=== PATIENT | female | born 1935 | race Caucasian/White ===

== ENCOUNTER 2018-04-11 23:22 | Emergency (ER) | payer MEDICARE, OTHER, MEDICAID ==
[2018-04-11] MEDS ORDERED: EPINEPHrine Nasal Soln 30 MG/30 ML Bottle NASBOTH ONE (23:23)
[2018-04-11] MEDS ORDERED: Ondansetron 4 MG Tab.DIS PO ONE (23:23)
[2018-04-11 23:29] VITALS: BP 122/49
[2018-04-11] MEDS ORDERED: EPINEPHrine Nasal Soln 30 MG/30 ML Bottle NAS PRN (23:49)
--- NOTE | 2018-04-11 23:52 | EDM.PDOC ---
ED HPI GENERAL MEDICAL PROBLEM - General Chief Complaint: ENT Problem Stated Complaint: nosebleed Time Seen by Provider: 04/11/18 23:32 Source of Information: Reports: Patient, Family History Limitations: Reports: No Limitations - History of Present Illness INITIAL COMMENTS - FREE TEXT/NARRATIVE: patient presents to ER with a nose bleed. States first started at 0300 but the staff at [facility] was able to get it to stop. Bled again shortly this am. This evening, bleeding was heavier and patient states she spit up a "big clot". Feels nauseated and weak from all of this today. She currently has packing in and has no active bleeding. Per family, patient has a history of profuse nose bleeds that have required cautery in the past. Does believe her room at the long-term is quite dry. Does not use any nose moisturizers. No humidifier in her room there. Currently takes an aspirin daily. Onset: Today Duration: Waxing/Waning Location: Reports: Face Associated Symptoms: Reports: Nausea/Vomiting Treatments RN PERIOPERATIVE: Reports: Dressing(s) - Related Data Allergies Allergy/AdvReac Type Severity Reaction Status Date / Time diazepam [From Valium] Allergy Rash Verified 04/11/18 23:29 Penicillins Allergy Cannot Verified 04/11/18 23:29 Remember procaine HCl [From Novocain] Allergy Chills Verified 04/11/18 23:29 Sulfa (Sulfonamide Allergy Burning Verified 04/11/18 23:29 Antibiotics) Home Meds: Home Meds Aspirin [Ecotrin] 81 mg PO DAILY 09/28/13 [History] Losartan [Cozaar] 50 mg PO DAILY 09/28/13 [History] Lovastatin 80 mg PO BEDTIME 09/28/13 [History] Magnesium 250 mg PO DAILY 09/28/13 [History] Nitroglycerin [Nitrostat] 0.4 mg SL ASDIRECTED PRN 09/28/13 [History] Sertraline [Zoloft] 50 mg PO DAILY 09/28/13 [History] Vitamin B Complex [B Complex] 1 each PO DAILY 09/28/13 [History] Levothyroxine [Synthroid] 150 mcg PO DAILY 07/23/14 [History] Acetaminophen [Acetaminophen Extra Strength] 1,000 mg PO Q4H PRN 12/22/14 [ History] traMADol [Ultram] 50 mg PO Q4H PRN 12/22/14 [History] Insulin Glarg,Human.Rec.Analog [Lantus] 30 unit SUBCUT BEDTIME 05/02/15 [History ] Magnesium Hydroxide [Milk of Magnesia] 30 ml PO DAILY PRN 05/02/15 [History] Cholecalciferol (Vitamin D3) [Vitamin D3] 2,000 unit PO DAILY 10/28/15 [History] Dextran 70/Hypromellose [Artificial Tears] 1 each OP BID 10/28/15 [History] Bisacodyl 10 mg RC DAILY PRN 12/19/15 [History] Bisacodyl [Dulcolax] 5 mg PO DAILY PRN 12/19/15 [History] Ferrous Sulfate 325 mg PO BID 12/19/15 [History] Furosemide [Lasix] 40 mg PO DAILY 12/19/15 [History] Gabapentin [Neurontin] 100 mg PO TID 12/19/15 [History] Insulin Aspart [NovoLOG] 6 unit SUBCUT WITHBREAKFAST 12/19/15 [History] Insulin Aspart [NovoLOG] 8 unit SUBCUT WITHLUNCH 12/19/15 [History] Insulin Aspart [NovoLOG] 10 unit SUBCUT WITHDINNER 12/19/15 [History] Sennosides/Docusate Sodium [Senna-Docusate Sodium] 1 each PO DAILY 12/19/15 [ History] Sucralfate [Carafate] 1 gm PO TID 12/19/15 [History] Temazepam [Restoril] 15 mg PO BEDTIME 12/19/15 [History] Metoprolol Tartrate [Lopressor] 25 mg PO Q12HR 03/25/16 [History] Pantoprazole [ProTONIX] 40 mg PO ACBREAKFAST 03/25/16 [History] Acetaminophen [Tylenol] 650 mg PO Q4H PRN #0 tablet 03/28/16 [Rx] Levofloxacin [Levaquin] 500 mg PO Q24H #1 tablet 03/28/16 [Rx] Past Medical History Cardiovascular History: Reports: Bypass, Stents Gastrointestinal History: Reports: GI Bleed Genitourinary History: Reports: UTI, Recurrent ELECTRICAL INTEGRATOR History: Reports: Other (See Below) Other ELECTRICAL INTEGRATOR History: twisted ovarian cyst Other Musculoskeletal History: compression fx to lumbar, right arm Neurological History: Reports: Concussion 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 Other Endocrine/Metabolic History: growth on thyroid Hematologic History: Reports: Anemia, Blood Transfusion(s) Oncologic (Cancer) History: 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 Dermatologic History: Reports: Cellulitis - Infectious Disease History Infectious Disease History: Reports: MRSA - Past Surgical History HEENT Surgical History: Reports: Cataract Surgery Cardiovascular Surgical History: Reports: Pacer, Valve Replacement Neurological Surgical History: Reports: None Social & Family History - Family History Family Medical History: Noncontributory - Tobacco Use Smoking Status *Q: Never Smoker - Caffeine Use Caffeine Use: Reports: None - Recreational Drug Use Recreational Drug Use: No - Living Situation & Occupation Living situation: Reports: Occupation: Retired ED ROS ENT - Review of Systems Review Of Systems: See Below Constitutional: Reports: Weakness. Denies: Fever, Chills, Malaise, Decreased Appetite HEENT: Reports: Nosebleed. Denies: Ear Pain, Rhinitis, Sinus Problem Respiratory: Denies: Shortness of Breath, Cough Cardiovascular: Denies: Chest Pain Endocrine: Reports: Fatigue GI/Abdominal: Reports: Nausea. Denies: Abdominal Pain, Vomiting : Reports: No Symptoms Musculoskeletal: Reports: No Symptoms Skin: Reports: No Symptoms Neurological: Reports: No Symptoms ED EXAM, ENT - Physical Exam Exam: See Below Exam Limited By: No Limitations General Appearance: Alert, WD/WN, No Apparent Distress Ears: Normal External Exam, Normal TMs Nose: Normal Inspection, Dried Blood, Other (packing removed from left nare. No active bleeding noted. Inserted gel foam moistened with adrenalin to left nare. Patient tolerated well. ) Mouth/Throat: Normal Inspection, Normal Oropharynx Head: Normocephalic Neck: Normal Inspection, Supple, Non-Tender Respiratory/Chest: No Respiratory Distress, Lungs Clear, Normal Breath Sounds Cardiovascular: Regular Rate, Rhythm Course - Vital Signs Last Recorded V/S: Last Vital Signs Temp 96.8 F 04/11/18 23:22 Pulse 65 04/11/18 23:22 Resp 20 04/11/18 23:22 BP 122/49 L 04/11/18 23:22 Pulse Ox 98 04/11/18 23:22 - Orders/Labs/Meds Orders: Active Orders 24 hr Category Date Time Status BASIC METABOLIC PANEL,BMP [CHEM] Stat Lab 04/11/18 23:35 Ordered EPINEPHrine [Adrenalin Nasal Soln] Med 04/11/18 23:49 Ordered 0.5 mg SEAN Q3HR PRN Medication Orders Epinephrine HCl (Adrenalin Nasal Soln) 0.5 mg SEAN Q3HR PRN PRN Reason: Bleeding Labs: Laboratory Tests 04/11/18 Range/Units 23:45 WBC 11.7 H (5.0-10.0) 10^3/uL RBC 4.22 (4.00-5.50) 10^6/uL Hgb 13.0 (12.0-16.0) g/dL Hct 40.9 (37.0-47.0) % MCV 96.9 H (82.0-94.0) fL MCH 30.8 (27.0-32.0) pg MCHC 31.8 L (33.0-38.0) g/dL RDW Coeff of Johnathan 15.1 H (11.0-15.0) % Plt Count 173 (150-400) 10^3/uL Neut % (Auto) 45.1 (35-85) % Lymph % (Auto) 34.1 (10-55) % [place] % (Auto) 9.5 (0-16) % Eos % (Auto) 10.8 H (0-5) % Baso % (Auto) 0.5 (0-3) % Neut # (Auto) 5.29 (1.80-7.00) 10^3/uL Lymph # (Auto) 4.00 (1.00-4.80) 10^3/uL [place] # (Auto) 1.11 H (0.00-0.80) 10^3/uL Eos # (Auto) 1.26 H (0.00-0.45) 10^3/uL Baso # (Auto) 0.06 10^3/uL Meds: Medications Generic Name Dose Route Start Last Admin Trade Name Freq PRN Reason Stop Dose Admin Epinephrine HCl 0.5 mg 04/11/18 23:49 Adrenalin Nasal Soln SEAN Q3HR PRN Bleeding - Re-Assessments/Exams Free Text/Narrative Re-Assessment/Exam: 04/11/18 23:53 No further nose bleed since admission to ER 04/12/18 00:01 No further bleeding noted. Posterior pharynx is clear. Departure - Departure Time of Disposition: 00:01 Disposition: Home, Self-Care 01 Condition: Good Clinical Impression: Epistaxis - Discharge Information *PRESCRIPTION DRUG MONITORING PROGRAM REVIEWED*: No *COPY OF PRESCRIPTION DRUG MONITORING REPORT IN PATIENT MUKESH: No Forms: ED Department Discharge Additional Instructions: 1. Hold aspirin today 2. Zofran 4 mg as needed for nausea 3. Remove packing this afternoon 4. Once packing removed, start [place] saline nasal spray in the morning and afternoon, saline gel to nares at bedtime 5. Humidifier in room if able 6. Follow up if any ongoing concerns. - My Orders Last 24 Hours: My Active Orders 04/11/18 23:35 BASIC METABOLIC PANEL,BMP [CHEM] Stat 04/11/18 23:49 EPINEPHrine [Adrenalin Nasal Soln] 0.5 mg SEAN Q3HR PRN - Assessment/Plan Last 24 Hours: My Active Orders 04/11/18 23:35 BASIC METABOLIC PANEL,BMP [CHEM] Stat 04/11/18 23:49 EPINEPHrine [Adrenalin Nasal Soln] 0.5 mg SEAN Q3HR PRN
[2018-04-11] MEDS ORDERED: Take Home: Ondansetron 4 MG Tab.DIS, 2 Tab Pack PO ONE (23:57)
== END 2018-04-12 | disposition home or self-care (01) ==
LOC: CC.ED 23:22
DX: R04.0 Epistaxis (principal); E20.9 Hypoparathyroidism, unspecified; D64.9 Anemia, unspecified; Z88.0 Allergy status to penicillin; Z79.82 Long term (current) use of aspirin; Z79.4 Long term (current) use of insulin; Z79.899 Other long term (current) drug therapy; Z88.8 Allergy status to other drugs, medicaments and biological substances; Z88.2 Allergy status to sulfonamides
CPT/HCPCS: 36415; 80048; 85025; 99283; A9270-GY

== ENCOUNTER 2018-04-15 11:35 | Observation (INO) | payer MEDICARE, OTHER, MEDICAID ==
[2018-04-15 12:18] LABS: CHLORIDE,CL 99 mEq/L (98-106); SODIUM,NA 137 mEq/L (136-145)
--- NOTE | 2018-04-15 13:13 | EDM.PDOC ---
ED HPI GENERAL MEDICAL PROBLEM - General Chief Complaint: General Stated Complaint: WEAKNESS,LETHARGIC Time Seen by Provider: 04/15/18 11:40 Source of Information: Reports: Patient, Residential Records History Limitations: Reports: Altered Mental Status - History of Present Illness INITIAL COMMENTS - FREE TEXT/NARRATIVE: Pt was sent to clinic from the [facility] with a 36 hour history of increasing weakness and some confusion. Has needed increase in assistance to transfer. Noted when she came to the clinic she had right sided weakness and was leaning to the right side. Speech was slightly slurred but answered questions appropriately. She was sent to the ER for stroke protocol at that time. When arriving here initial stroke eval done. see the attached sheet. She did score a 3 initially as her right side was weaker and had mild aphasia as she couldn't remember what the cactus in the picture was called but could name everything else. CT of the head was read by radiology as negative for any bleed. Onset: Gradual Duration: Hour(s): (at least 36 hours as reported from [facility] notes.) Location: Reports: Upper Extremity, Right (weakness), Lower Extremity, Right ( weakness) Severity: Mild Associated Symptoms: Reports: Weakness - Related Data Allergies Allergy/AdvReac Type Severity Reaction Status Date / Time diazepam [From Valium] Allergy Rash Verified 04/15/18 12:03 Penicillins Allergy Cannot Verified 04/15/18 12:03 Remember procaine HCl [From Novocain] Allergy Chills Verified 04/15/18 12:03 Sulfa (Sulfonamide Allergy Burning Verified 04/15/18 12:03 Antibiotics) Home Meds: Home Meds Aspirin [Ecotrin] 81 mg PO DAILY 09/28/13 [History] Losartan [Cozaar] 25 mg PO DAILY 09/28/13 [History] Lovastatin 80 mg PO BEDTIME 09/28/13 [History] Magnesium 250 mg PO DAILY 09/28/13 [History] Sertraline [Zoloft] 100 mg PO DAILY 09/28/13 [History] Vitamin B Complex [B Complex] 1 each PO DAILY 09/28/13 [History] Levothyroxine [Synthroid] 150 mcg PO DAILY 07/23/14 [History] traMADol [Ultram] 50 mg PO QID 12/22/14 [History] Cholecalciferol (Vitamin D3) [Vitamin D3] 2,000 unit PO DAILY 10/28/15 [History] Dextran 70/Hypromellose [Artificial Tears] 1 each OP BID 10/28/15 [History] Furosemide [Lasix] 60 mg PO DAILY 12/19/15 [History] Gabapentin [Neurontin] 200 mg PO TID 12/19/15 [History] Insulin Aspart [NovoLOG] 30 unit SUBCUT WITHBREAKFAST 12/19/15 [History] Insulin Aspart [NovoLOG] 30 unit SUBCUT WITHLUNCH 12/19/15 [History] Insulin Aspart [NovoLOG] 35 unit SUBCUT WITHDINNER 12/19/15 [History] Sennosides/Docusate Sodium [Senna-Docusate Sodium] 1 each PO DAILY 12/19/15 [ History] Sucralfate [Carafate] 1 gm PO BID 12/19/15 [History] Metoprolol Tartrate [Lopressor] 25 mg PO Q12HR 03/25/16 [History] Acetaminophen [Tylenol] 650 mg PO Q4H PRN #0 tablet 03/28/16 [Rx] Aloe Vera/Sodium Chloride [[place] Saline Nasal Gel] 1 applic SEAN TID 04/15/18 [ History] Insulin Detemir [Levemir] 70 unit SUBCUT BID 04/15/18 [History] Isosorbide Mononitrate [Imdur] 30 mg PO DAILY 04/15/18 [History] Loratadine [Claritin] 10 mg PO DAILY 04/15/18 [History] hydrOXYzine pamoate [Hydroxyzine Pamoate] 25 mg PO Q6H PRN 04/15/18 [History] Past Medical History Cardiovascular History: Reports: Bypass, Stents Gastrointestinal History: Reports: GI Bleed Genitourinary History: Reports: UTI, Recurrent RADAR MECHANIC History: Reports: Other (See Below) Other RADAR MECHANIC History: twisted ovarian cyst Other Musculoskeletal History: compression fx to lumbar, right arm Neurological History: Reports: Concussion 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 Other Endocrine/Metabolic History: growth on thyroid Hematologic History: Reports: Anemia, Blood Transfusion(s) Oncologic (Cancer) History: 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 Dermatologic History: Reports: Cellulitis - Infectious Disease History Infectious Disease History: Reports: MRSA - Past Surgical History HEENT Surgical History: Reports: Cataract Surgery Cardiovascular Surgical History: Reports: Pacer, Valve Replacement Neurological Surgical History: Reports: None Social & Family History - Family History Family Medical History: Noncontributory - Tobacco Use Smoking Status *Q: Never Smoker - Living Situation & Occupation Living situation: Reports: Occupation: Retired ED ROS GENERAL - Review of Systems Review Of Systems: See Below Constitutional: Reports: Weakness. Denies: Fever, Chills HEENT: Reports: No Symptoms. Denies: Nosebleed Respiratory: Denies: Shortness of Breath, Cough Cardiovascular: Denies: Chest Pain, Edema GI/Abdominal: Denies: Abdominal Pain, Constipation, Diarrhea, Nausea, Vomiting : Reports: No Symptoms Musculoskeletal: Denies: Arm Pain, Leg Pain Skin: Reports: Erythema (lower legs bilaterally which she states is normal for her. ) Neurological: Reports: Difficulty Walking, Weakness, Change in Speech. 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 No: Facial Swelling, Facial Tenderness Neck: Normal Inspection, Supple, Non-Tender Respiratory/Chest: No Respiratory Distress, Lungs Clear, Normal Breath Sounds Cardiovascular: Regular Rate, Rhythm, No Edema Peripheral Pulses: 3+: Carotid (L), Carotid (R) GI/Abdominal: Normal Bowel Sounds, Soft, Non-Tender (Female) Exam: Other (external genitalia is red with white discharge noted. ) Extremities: Normal Inspection, No Pedal Edema, Normal Capillary Refill, Other ( see neuro assessment sheet. She does have weakness of the right upper and lower leg. More noted on the lower extremity.) Neurological: Alert, Oriented, Slow to Respond Psychiatric: Flat Affect Skin Exam: Warm, Dry, Erythema (to lower anterior legs but not warm to touch. No open areas. No tenderness noted.) Course - Orders/Labs/Meds Orders: Active Orders 24 hr Category Date Time Status Head wo Cont [CT] Stat Exams 04/15/18 11:44 Taken EKG 12 Lead [EK] Routine Ther 04/15/18 11:44 Ordered Labs: Laboratory Tests 04/15/18 04/15/18 04/15/18 Range/Units 12:00 12:00 12:00 WBC 10.4 H (5.0-10.0) 10^3/uL RBC 4.00 (4.00-5.50) 10^6/uL Hgb 12.3 (12.0-16.0) g/dL Hct 38.5 (37.0-47.0) % MCV 96.3 H (82.0-94.0) fL MCH 30.8 (27.0-32.0) pg MCHC 31.9 L (33.0-38.0) g/dL RDW Coeff of Johnathan 14.9 (11.0-15.0) % Plt Count 175 (150-400) 10^3/uL Neut % (Auto) 61.5 (35-85) % Lymph % (Auto) 21.2 (10-55) % [place] % (Auto) 8.8 (0-16) % Eos % (Auto) 8.0 H (0-5) % Baso % (Auto) 0.5 (0-3) % Neut # (Auto) 6.37 (1.80-7.00) 10^3/uL Lymph # (Auto) 2.20 (1.00-4.80) 10^3/uL [place] # (Auto) 0.91 H (0.00-0.80) 10^3/uL Eos # (Auto) 0.83 H (0.00-0.45) 10^3/uL Baso # (Auto) 0.05 10^3/uL PT 12.0 (9.7-12.3) SEC INR 1.17 (0.92-1.18) APTT 31.7 (23.2-32.3) SEC Sodium 137 (136-145) mEq/L Potassium 4.5 (3.5-5.0) mEq/L Chloride 99 (98-106) mEq/L Carbon Dioxide 34 H (21-32) mmol/L BUN 41 H D (7-18) mg/dL Creatinine 1.9 H (0.6-1.0) mg/dL Est Cr Clr Drug Dosing TNP Estimated GFR (MDRD) 25 L (>=60) mL/min Glucose 208 H D (75-99) mg/dL Calcium 9.0 (8.4-10.1) mg/dL Total Bilirubin 0.6 (0.0-1.0) mg/dL AST 73 H (15-37) U/L ALT 36 (12-78) U/L Alkaline Phosphatase 133 H (46-116) U/L Creatine Kinase 855 H (21-215) U/L Troponin I < 0.017 (0.00-0.06) ng/mL Total Protein 7.2 (6.4-8.2) g/dL Albumin 3.0 L (3.4-5.0) g/dL Urine Color (YELLOW) Urine Appearance (CLEAR) Urine pH (4.5-8.0) Ur Specific [place] (1.003-1.020) Urine Protein (NEGATIVE) mg/dL Urine Glucose (UA) (NEGATIVE) mg/dL Urine Ketones (NEGATIVE) mg/dL Urine Occult Blood (NEGATIVE) Urine Nitrite (NEGATIVE) Urine Bilirubin (NEGATIVE) Urine Urobilinogen (0.2-1.0) EU/dL Ur Leukocyte Esterase (NEGATIVE) Urine RBC (0-5) /HPF Urine WBC (0-5) /HPF Hyaline Casts (NOT SEEN) /LPF 04/15/18 Range/Units 12:37 WBC (5.0-10.0) 10^3/uL RBC (4.00-5.50) 10^6/uL Hgb (12.0-16.0) g/dL Hct (37.0-47.0) % MCV (82.0-94.0) fL MCH (27.0-32.0) pg MCHC (33.0-38.0) g/dL RDW Coeff of Johnathan (11.0-15.0) % Plt Count (150-400) 10^3/uL Neut % (Auto) (35-85) % Lymph % (Auto) (10-55) % [place] % (Auto) (0-16) % Eos % (Auto) (0-5) % Baso % (Auto) (0-3) % Neut # (Auto) (1.80-7.00) 10^3/uL Lymph # (Auto) (1.00-4.80) 10^3/uL [place] # (Auto) (0.00-0.80) 10^3/uL Eos # (Auto) (0.00-0.45) 10^3/uL Baso # (Auto) 10^3/uL PT (9.7-12.3) SEC INR (0.92-1.18) APTT (23.2-32.3) SEC Sodium (136-145) mEq/L Potassium (3.5-5.0) mEq/L Chloride (98-106) mEq/L Carbon Dioxide (21-32) mmol/L BUN (7-18) mg/dL Creatinine (0.6-1.0) mg/dL Est Cr Clr Drug Dosing Estimated GFR (MDRD) (>=60) mL/min Glucose (75-99) mg/dL Calcium (8.4-10.1) mg/dL Total Bilirubin (0.0-1.0) mg/dL AST (15-37) U/L ALT (12-78) U/L Alkaline Phosphatase (46-116) U/L Creatine Kinase (21-215) U/L Troponin I (0.00-0.06) ng/mL Total Protein (6.4-8.2) g/dL Albumin (3.4-5.0) g/dL Urine Color Yellow (YELLOW) Urine Appearance Clear (CLEAR) Urine pH 5.5 (4.5-8.0) Ur Specific [place] 1.020 (1.003-1.020) Urine Protein Negative (NEGATIVE) mg/dL Urine Glucose (UA) Negative (NEGATIVE) mg/dL Urine Ketones Negative (NEGATIVE) mg/dL Urine Occult Blood Negative (NEGATIVE) Urine Nitrite Negative (NEGATIVE) Urine Bilirubin Negative (NEGATIVE) Urine Urobilinogen 0.2 (0.2-1.0) EU/dL Ur Leukocyte Esterase Negative (NEGATIVE) Urine RBC Not seen (0-5) /HPF Urine WBC Not seen (0-5) /HPF Hyaline Casts Few H (NOT SEEN) /LPF - Re-Assessments/Exams Free Text/Narrative Re-Assessment/Exam: 04/15/18 13:[address] Miller. He agrees that she will be admitted observation for IV fluids and neuro checks. Will repeat the labs in the morning to watch renal functions. MRI will be scheduled for Wednesday if family wishes. Discussed with Cornelia Sharma who will cover for the weekend. Departure - Departure Time of Disposition: 13:22 Disposition: Refer to Observation Condition: Fair Clinical Impression: TIA (transient ischemic attack), Acute renal insufficiency, Weakness - Discharge Information *PRESCRIPTION DRUG MONITORING PROGRAM REVIEWED*: Not Applicable *COPY OF PRESCRIPTION DRUG MONITORING REPORT IN PATIENT MUKESH: Not Applicable Additional Instructions: Will be admitted to Dr Miller observation with neuro checks and IV fluids. - Problem List & Annotations (1) TIA (transient ischemic attack) SNOMED Code(s): 675407885 Code(s): G45.9 - TRANSIENT CEREBRAL ISCHEMIC ATTACK, UNSPECIFIED Status: Acute Priority: High (2) Acute renal insufficiency SNOMED Code(s): 579356642 Code(s): N28.9 - DISORDER OF KIDNEY AND URETER, UNSPECIFIED Status: Acute Priority: High (3) Weakness SNOMED Code(s): 61895458 Code(s): R53.1 - WEAKNESS Status: Acute Priority: Low - Problem List Review Problem List Initiated/Reviewed/Updated: Yes - My Orders Last 24 Hours: My Active Orders 04/15/18 11:44 Head wo Cont [CT] Stat EKG 12 Lead [EK] Routine - Assessment/Plan Admission H&P: Please use this note as an admission H&P Last 24 Hours: My Active Orders 04/15/18 11:44 Head wo Cont [CT] Stat EKG 12 Lead [EK] Routine
[2018-04-15] MEDS ORDERED: Metoprolol Tartrate 25 MG Tab PO SCH (13:45)
[2018-04-15] MEDS ORDERED: Fluconazole 100 MG Tab PO ONE (14:23)
[2018-04-15] MEDS: Enoxaparin 30 MG/0.3 ML Syringe SUBCUT SCH (14:56)
[2018-04-15] MEDS: Sodium Chloride 0.9% 1,000 ML IV SCH (14:56)
[2018-04-15] MEDS: Non-Formulary Medication 1 Each (Aloe Vera/Sodium Chloride [Ayr Saline Nasal Gel] 1 APPLIC NAS SCH ×2 (14:58→19:42)
[2018-04-15] MEDS: **PTOM** Gabapentin 100 MG Cap PO SCH ×2 (15:26→19:33)
[2018-04-15] MEDS ORDERED: Insulin Aspart 100 Units/ML 3 ML Pen SUBCUT SCH (17:30)
[2018-04-15] MEDS ORDERED: Oxymetazoline 0.05% Nasal Spray 15 ML Bottle NAS PRN (17:55)
[2018-04-15] MEDS: SUCRALFATE 1 GM PO SCH (19:33)
[2018-04-15] MEDS: SERTRALINE 100 MG PO SCH (19:34)
[2018-04-15] MEDS: LOVASTATIN 40 MG PO SCH (19:37)
[2018-04-15] MEDS: HYPROMELLOSE OP SCH (20:06)
[2018-04-15] MEDS: DEXTRAN OP SCH (20:06)
[2018-04-15] MEDS: Insulin Detemir 100 Units/ML 3 ML Pen SUBCUT SCH (21:35)
[2018-04-15] MEDS: Insulin Aspart 100 Units/ML 3 ML Pen SUBCUT SCH (21:36)
[2018-04-16] MEDS: Sodium Chloride 0.9% 1,000 ML IV SCH ×2 (03:19→16:57)
[2018-04-16] MEDS: SUCRALFATE 1 GM PO SCH ×2 (07:37→20:00)
[2018-04-16] MEDS: Loratadine 10 MG Tab PO SCH (07:37)
[2018-04-16] MEDS: Aspirin 81 MG Tab.EC PO SCH (07:37)
[2018-04-16] MEDS: **PTOM** Furosemide 20 MG Tab PO SCH (07:39)
[2018-04-16] MEDS: **PTOM** Isosorbide Mononitrate 30 MG Tab.ER PO SCH ×2 (07:39→08:40)
[2018-04-16] MEDS: **PTOM** Gabapentin 100 MG Cap PO SCH ×3 (07:41→19:59)
[2018-04-16] MEDS: LEVOTHYROXINE 100 MCG PO SCH (07:41)
[2018-04-16] MEDS: Non-Formulary Medication 1 Each (Aloe Vera/Sodium Chloride [Ayr Saline Nasal Gel] 1 APPLIC NAS SCH ×3 (07:42→20:00)
[2018-04-16] MEDS: Insulin Detemir 100 Units/ML 3 ML Pen SUBCUT SCH ×2 (07:49→21:02)
[2018-04-16] MEDS ORDERED: Insulin Aspart 100 Units/ML 3 ML Pen SUBCUT SCH ×2 (08:00→12:00)
[2018-04-16] MEDS ORDERED: Non-Formulary Medication 1 Each (Magnesium [Magnesium] 250 MG) PO SCH (08:00)
[2018-04-16] MEDS: METOPROLOL TARTRATE 25 MG PO SCH ×2 (08:40→19:59)
[2018-04-16] MEDS: Insulin Aspart 100 Units/ML 3 ML Pen SUBCUT SCH ×4 (08:40→21:06)
[2018-04-16] MEDS: DEXTRAN OP SCH (09:50)
[2018-04-16] MEDS: HYPROMELLOSE OP SCH (09:50)
--- NOTE | 2018-04-16 13:07 | PCM.PN ---
- General Info Date of Service: 04/16/18 Admission Dx/Problem (Free Text): Weakness TIA Functional Status: Reports: Pain Controlled, Tolerating Diet. Denies: Ambulating - Review of Systems General: Reports: Weakness, Fatigue HEENT: Reports: Other (nose bleeds off and on yesterday evening.) Pulmonary: Denies: Shortness of Breath, Cough Cardiovascular: Denies: Chest Pain, Edema, Lightheadedness Gastrointestinal: Denies: Abdominal Pain, Nausea, Vomiting Musculoskeletal: Reports: Back Pain Neurological: Reports: Weakness - Patient Data Vitals - Most Recent: Last Vital Signs Temp 98.5 F 04/16/18 12:00 Pulse 70 04/16/18 12:00 Resp 16 04/16/18 12:00 BP 127/49 L 04/16/18 12:00 Pulse Ox 95 04/16/18 12:00 Weight - Most Recent: 259 lb 14.4 oz I&O - Last 24 Hours: Intake & Output 04/15/18 04/16/18 04/16/18 22:59 06:59 14:59 Intake Total 1029 Output Total 1999 72 Balance -1999 304 Lab Results Last 24 Hours: Laboratory Results - last 24 hr 04/15/18 04/15/18 04/16/18 Range/Units 17:32 21:04 05:11 WBC 10.1 H (5.0-10.0) 10^3/uL RBC 3.95 L (4.00-5.50) 10^6/uL Hgb 12.3 (12.0-16.0) g/dL Hct 37.9 (37.0-47.0) % MCV 95.9 H (82.0-94.0) fL MCH 31.1 (27.0-32.0) pg MCHC 32.5 L (33.0-38.0) g/dL RDW Coeff of Johnathan 14.9 (11.0-15.0) % Plt Count 187 (150-400) 10^3/uL Neut % (Auto) 54.5 (35-85) % Lymph % (Auto) 26.5 (10-55) % [place] % (Auto) 11.5 (0-16) % Eos % (Auto) 6.8 H (0-5) % Baso % (Auto) 0.7 (0-3) % Neut # (Auto) 5.53 (1.80-7.00) 10^3/uL Lymph # (Auto) 2.68 (1.00-4.80) 10^3/uL [place] # (Auto) 1.16 H (0.00-0.80) 10^3/uL Eos # (Auto) 0.69 H (0.00-0.45) 10^3/uL Baso # (Auto) 0.07 10^3/uL Sodium (136-145) mEq/L Potassium (3.5-5.0) mEq/L Chloride (98-106) mEq/L Carbon Dioxide (21-32) mmol/L BUN (7-18) mg/dL Creatinine (0.6-1.0) mg/dL Est Cr Clr Drug Dosing mL/min Estimated GFR (MDRD) (>=60) mL/min Glucose (75-99) mg/dL POC Glucose 97 144 H (75-105) mg/dl Calcium (8.4-10.1) mg/dL Total Bilirubin (0.0-1.0) mg/dL AST (15-37) U/L ALT (12-78) U/L Alkaline Phosphatase (46-116) U/L Creatine Kinase (21-215) U/L C-Reactive Protein (0.2-0.8) mg/dL Total Protein (6.4-8.2) g/dL Albumin (3.4-5.0) g/dL 04/16/18 04/16/18 04/16/18 Range/Units 07:30 07:47 11:33 WBC (5.0-10.0) 10^3/uL RBC (4.00-5.50) 10^6/uL Hgb (12.0-16.0) g/dL Hct (37.0-47.0) % MCV (82.0-94.0) fL MCH (27.0-32.0) pg MCHC (33.0-38.0) g/dL RDW Coeff of Johnathan (11.0-15.0) % Plt Count (150-400) 10^3/uL Neut % (Auto) (35-85) % Lymph % (Auto) (10-55) % [place] % (Auto) (0-16) % Eos % (Auto) (0-5) % Baso % (Auto) (0-3) % Neut # (Auto) (1.80-7.00) 10^3/uL Lymph # (Auto) (1.00-4.80) 10^3/uL [place] # (Auto) (0.00-0.80) 10^3/uL Eos # (Auto) (0.00-0.45) 10^3/uL Baso # (Auto) 10^3/uL Sodium 139 (136-145) mEq/L Potassium 4.5 (3.5-5.0) mEq/L Chloride 102 (98-106) mEq/L Carbon Dioxide 31 (21-32) mmol/L BUN 37 H (7-18) mg/dL Creatinine 1.4 H (0.6-1.0) mg/dL Est Cr Clr Drug Dosing 24.08 mL/min Estimated GFR (MDRD) 36 L (>=60) mL/min Glucose 148 H D (75-99) mg/dL POC Glucose 151 H 194 H (75-105) mg/dl Calcium 8.9 (8.4-10.1) mg/dL Total Bilirubin 0.8 (0.0-1.0) mg/dL AST 68 H (15-37) U/L ALT 33 (12-78) U/L Alkaline Phosphatase 125 H (46-116) U/L Creatine Kinase 490 H (21-215) U/L C-Reactive Protein 3.8 H (0.2-0.8) mg/dL Total Protein 6.9 (6.4-8.2) g/dL Albumin 2.8 L (3.4-5.0) g/dL Med Orders - Current: Current Medications Artificial Tears (Liquitears 1.4% Ophth Soln) 0 ml EYEBOTH BID [facility] Aspirin (Halfprin) 81 mg PO DAILY [facility] Last Admin: 04/16/18 07:37 Dose: 81 mg Enoxaparin Sodium (Lovenox) 30 mg SUBCUT DAILY@1600 [facility] Last Admin: 04/15/18 14:56 Dose: 30 mg Furosemide (Lasix) 60 mg PO DAILY [facility] Last Admin: 04/16/18 07:39 Dose: 60 mg Gabapentin (Neurontin) 200 mg PO TID [facility] Last Admin: 04/16/18 07:41 Dose: 200 mg Sodium Chloride (Normal Saline) 1,000 mls @ 75 mls/hr IV ASDIRECTED [facility] Last Admin: 04/16/18 03:19 Dose: 75 mls/hr Insulin Aspart (Novolog) 0 unit SUBCUT WITHMEALSANDBED [facility]; Protocol Last Admin: 04/16/18 12:14 Dose: 2 units Insulin Detemir (Levemir) 70 unit SUBCUT BID [facility] Last Admin: 04/16/18 07:49 Dose: 70 units Isosorbide Mononitrate (Imdur) 30 mg PO DAILY [facility] Last Admin: 04/16/18 08:40 Dose: 30 mg Levothyroxine Sodium (Synthroid) 150 mcg PO DAILY [facility] Last Admin: 04/16/18 07:41 Dose: 150 mcg Loratadine (Claritin) 10 mg PO DAILY [facility] Last Admin: 04/16/18 07:37 Dose: 10 mg Magnesium Oxide (Magnesium Oxide) 250 mg PO DAILY [facility] Metoprolol Tartrate (Lopressor) 25 mg PO BID [facility] Last Admin: 04/16/18 08:40 Dose: 25 mg Non-Formulary Medication (Aloe Vera/Sodium Chloride [[place] Saline Nasal Gel]) 1 applic SEAN TID [facility] Last Admin: 04/16/18 07:42 Dose: Not Given Ptom Lovastatin ([Lovastatin] 40 Mg) 80 mg PO BEDTIME [facility] Last Admin: 04/15/18 19:37 Dose: 80 mg Ptom Sertraline ([Zoloft] 100 Mg) 100 mg PO DAILY@1999 [facility] Last Admin: 04/15/18 19:34 Dose: 100 mg Oxymetazoline HCl (Afrin Original 0.05% Nasal [place]) 0 ml SEAN QID PRN PRN Reason: nose bleed Last Admin: 04/15/18 18:19 Dose: 2 spray Senna/Docusate Sodium (Senna Plus) 1 tab PO DAILY [facility] Last Admin: 04/16/18 07:37 Dose: 1 tab Sucralfate (Carafate) 1 gm PO BID [facility] Last Admin: 04/16/18 07:37 Dose: 1 gm Tramadol HCl (Ultram) 50 mg PO QID [facility] Last Admin: 04/16/18 12:15 Dose: 50 mg Discontinued Medications Fluconazole (Diflucan) 150 mg PO NOW ONE Stop: 04/15/18 14:24 Last Admin: 04/15/18 14:56 Dose: 150 mg Insulin Aspart (Novolog) 30 unit SUBCUT WITHBREAKFAST [facility] Insulin Aspart (Novolog) 30 unit SUBCUT WITHLUNCH [facility] Insulin Aspart (Novolog) 35 unit SUBCUT WITHDINNER [facility] Last Admin: 04/15/18 17:54 Dose: Not Given Metoprolol Tartrate (Lopressor) 25 mg PO Q12H [facility] Last Admin: 04/15/18 14:58 Dose: Not Given Non-Formulary Medication (Dextran 70/Hypromellose [Artificial Tears]) 1 each OP BID [facility] Last Admin: 04/16/18 09:50 Dose: Not Given Non-Formulary Medication (Magnesium [Magnesium]) 250 mg PO DAILY [facility] Last Admin: 04/16/18 09:50 Dose: Not Given - Exam General: Alert, Oriented HEENT: Mucous Membr. Moist/[place] Neck: Supple Lungs: Clear to Auscultation, Normal Respiratory Effort Cardiovascular: Regular Rate, Regular Rhythm GI/Abdominal Exam: Normal Bowel Sounds, Soft, Non-Tender Extremities: Normal Inspection Skin: Warm, Dry Neurological: Other (Patient is answering questions better today. Is oriented to person and place, disoriented to time. Feels "mixed up". Palmar grasps are equal today. Lower extremities are weak but equal. ) - Problem List & Annotations (1) TIA (transient ischemic attack) SNOMED Code(s): 473667232 Code(s): G45.9 - TRANSIENT CEREBRAL ISCHEMIC ATTACK, UNSPECIFIED Status: Acute Priority: High Current Visit: Yes (2) Weakness SNOMED Code(s): 24819881 Code(s): R53.1 - WEAKNESS Status: Acute Priority: High Current Visit: Yes - Problem List Review Problem List Initiated/Reviewed/Updated: Yes - My Orders Last 24 Hours: My Active Orders 04/15/18 17:55 Oxymetazoline [Afrin Original 0.05% Nasal [place]] 0 ml SEAN QID PRN 04/15/18 21:00 Insulin Aspart [NovoLOG] See Protocol SUBCUT WITHMEALSANDBED 04/15/18 22:43 Urinary Catheter Assessment [RC] 08,199904/15/18 22:45 Insert [place] Catheter [Insert Urinary Catheter] [OM.PC] Q24H 04/16/18 10:00 Polyvinyl Alcohol [LiquiTears 1.4% Ophth Soln] 0 ml EYEBOTH BID - Assessment Assessment:: TIA Weakness - Plan Plan:: Patient is more alert today, answers questions. Relates has positional back pain. Oriented to person and. Arm movement and palmar grasps are equal today. Legs are weak but equal. Did feed herself lunch today. Had a nose bleed last evening, stopped without incident with Afrin. Blood pressure stable. Labs are stable, WBC 10.1. Electrolytes normal, creatinine improved to 1.4. Will continue to monitor neuro status. Cardiac telemetry. Transfer/ambulate if patient able. Possible discharge back to [facility] and follow up with MRI on Wednesday.
[2018-04-16] MEDS: Polyvinyl Alcohol 1.4% Ophth Soln 15 ML Bottle EYEBOTH SCH ×2 (13:48→20:01)
[2018-04-16] MEDS: Enoxaparin 30 MG/0.3 ML Syringe SUBCUT SCH (15:45)
[2018-04-16] MEDS: SERTRALINE 100 MG PO SCH (19:59)
[2018-04-16] MEDS: LOVASTATIN 40 MG PO SCH (19:59)
[2018-04-17] MEDS: Sodium Chloride 0.9% 1,000 ML IV SCH (06:51)
[2018-04-17 07:35] VITALS: BP 151/57
[2018-04-17] MEDS: Aspirin 81 MG Tab.EC PO SCH (07:38)
[2018-04-17] MEDS: Loratadine 10 MG Tab PO SCH (07:38)
[2018-04-17] MEDS: **PTOM** Isosorbide Mononitrate 30 MG Tab.ER PO SCH (07:39)
[2018-04-17] MEDS: METOPROLOL TARTRATE 25 MG PO SCH (07:39)
[2018-04-17] MEDS: LEVOTHYROXINE 100 MCG PO SCH (07:39)
[2018-04-17] MEDS: SUCRALFATE 1 GM PO SCH (07:39)
[2018-04-17] MEDS: **PTOM** Gabapentin 100 MG Cap PO SCH (07:40)
[2018-04-17] MEDS: **PTOM** Furosemide 20 MG Tab PO SCH (07:40)
[2018-04-17] MEDS: Polyvinyl Alcohol 1.4% Ophth Soln 15 ML Bottle EYEBOTH SCH (07:44)
[2018-04-17] MEDS: Non-Formulary Medication 1 Each (Aloe Vera/Sodium Chloride [Ayr Saline Nasal Gel] 1 APPLIC NAS SCH (07:45)
[2018-04-17] MEDS: Insulin Detemir 100 Units/ML 3 ML Pen SUBCUT SCH (07:45)
[2018-04-17] MEDS: Insulin Aspart 100 Units/ML 3 ML Pen SUBCUT SCH ×2 (07:46→12:05)
--- NOTE | 2018-04-18 20:06 | PCM.DCSUM1 ---
Discharge Summary - Hospital Course Free Text/Narrative:: Patient was admitted by Sakina Morales for increased weakness and not eating well. She had been declining over the last week or so. Has been lethargic. No fevers. Was felt to have right sided weakness and was leaning to the right side. Stroke protocol started. CT scan of the head was negative for acute changes. Labs did show a creatinine of 1.9. Admitted for IV fluids and further neurological monitoring. Diagnosis: Stroke: Yes Modified Marcial Scale: Mod.Sev.Disability ;Unable to Walk/Attend Bodily Needs W/ O Assistance Modified Marcial Scale Score: 4 - Discharge Data Discharge Date: 04/17/18 Discharge Disposition: Home, Self-Care 01 Condition: Fair - Discharge Diagnosis/Problem(s) (1) TIA (transient ischemic attack) SNOMED Code(s): 553868962 ICD Code: G45.9 - TRANSIENT CEREBRAL ISCHEMIC ATTACK, UNSPECIFIED Status: Acute Priority: High (2) Weakness SNOMED Code(s): 24582109 ICD Code: R53.1 - WEAKNESS Status: Acute Priority: High - Patient Summary/Data Complications: none Consults: Consultations 04/15/18 14:23 PT Evaluation and Treatment [CONS] Routine Hospital Course: Patient has not had a change in her status. Continues to have wax and waning of alertness. She does continue to be very weak, does not bear weight on her legs with transfers. She is eating very little, gets very tired while eating. At times, will feed herself but other times, needs full assistance. Labs did improve with creatinine increasing to 1.3 with no change in status. Has continued to have right side weakness but per family, that is not new over the last weeks. Staff has even used a wedge in her chair for some time. Per daughter, she has been weak for some time, falls asleep easily but her not eating is new. Long discussions were held with family over the weekend as well as considerations for transfer. Patient has been on anticoagulants in the past but had multiple nose bleeds from them so were stopped. Will not resume unless further evidence of stroke by MRI. Family relates that she has been more concerned about quality of life in the past, not quantity so do want aggressive measures done. Will transfer back to snf, obtain MRI on Wednesday. Continue assistance as needed as see how this progresses. May need further adjustments of insulin in the future dependent on if she resumes eating per her norm. As family did relate that her Sertraline was increased in the recent past as well as her Tramadol and wonders if related to her lethargy, will return back to sertraline 50 mg daily and Tramadol 50 mg TID. - Patient Instructions Diet: Diabetic Diet Activity: As Tolerated - Discharge Plan *PRESCRIPTION DRUG MONITORING PROGRAM REVIEWED*: Not Applicable *COPY OF PRESCRIPTION DRUG MONITORING REPORT IN PATIENT MUKESH: Not Applicable Prescriptions/Med Rec: Insulin Aspart [NovoLOG] See Protocol SUBCUT WITHMEALSANDBED #1 pen Home Medications: Home Meds Aspirin [Ecotrin] 81 mg PO DAILY 09/28/13 [History] Losartan [Cozaar] 25 mg PO DAILY 09/28/13 [History] Lovastatin 80 mg PO BEDTIME 09/28/13 [History] Magnesium 250 mg PO DAILY 09/28/13 [History] Vitamin B Complex [B Complex] 1 each PO DAILY 09/28/13 [History] Levothyroxine [Synthroid] 150 mcg PO DAILY 07/23/14 [History] Cholecalciferol (Vitamin D3) [Vitamin D3] 2,000 unit PO DAILY 10/28/15 [History] Dextran 70/Hypromellose [Artificial Tears] 1 each OP BID 10/28/15 [History] Furosemide [Lasix] 60 mg PO DAILY 12/19/15 [History] Gabapentin [Neurontin] 200 mg PO TID 12/19/15 [History] Sennosides/Docusate Sodium [Senna-Docusate Sodium] 1 each PO DAILY 12/19/15 [ History] Sucralfate [Carafate] 1 gm PO BID 12/19/15 [History] Metoprolol Tartrate [Lopressor] 25 mg PO Q12HR 03/25/16 [History] Acetaminophen [Tylenol] 650 mg PO Q4H PRN #0 tablet 03/28/16 [Rx] Aloe Vera/Sodium Chloride [[place] Saline Nasal Gel] 1 applic SEAN TID 04/15/18 [ History] Insulin Detemir [Levemir] 70 unit SUBCUT BID 04/15/18 [History] Isosorbide Mononitrate [Imdur] 30 mg PO DAILY 04/15/18 [History] Loratadine [Claritin] 10 mg PO DAILY 04/15/18 [History] hydrOXYzine pamoate [Hydroxyzine Pamoate] 25 mg PO Q6H PRN 04/15/18 [History] Insulin Aspart [NovoLOG] See Protocol SUBCUT WITHMEALSANDBED #1 pen 04/17/18 [Rx ] Sertraline [Zoloft] 50 mg PO DAILY #30 04/17/18 [Rx] traMADol [Ultram] 50 mg PO TID #90 04/17/18 [Rx] Forms: ED Department Discharge Referrals: Oliver Miller MD [Primary Care Provider] - - Discharge Summary/Plan Comment DC Time >30 min.: No Discharge Summary/Plan Comment: See hospital course. Decrease Sertraline to 50 mg daily Decrease Tramadol 50 mg to TID Sliding scale insulin, hold novolog usual doses. - General Info Date of Service: 04/17/18 Admission Dx/Problem (Free Text: Weakness TIA Functional Status: Reports: Pain Controlled, Tolerating Diet. Denies: Ambulating - Review of Systems General: Reports: Weakness, Fatigue HEENT: Reports: No Symptoms Pulmonary: Denies: Shortness of Breath, Cough Cardiovascular: Denies: Chest Pain, Lightheadedness Gastrointestinal: Denies: Abdominal Pain, Nausea, Vomiting Genitourinary: Reports: No Symptoms Musculoskeletal: Reports: No Symptoms Skin: Reports: No Symptoms Neurological: Reports: Confusion (confusion noted at times.), Weakness - Patient Data Vitals - Most Recent: Last Vital Signs Temp 98.7 F 04/17/18 07:34 Pulse 60 04/17/18 07:39 Resp 18 04/17/18 07:34 BP 151/57 H 04/17/18 07:39 Pulse Ox 93 L 04/17/18 07:34 Weight - Most Recent: 259 lb 6.4 oz Lab Results - Last 24 hrs: Laboratory Results - last 24 hr 04/17/18 04/17/18 Range/Units 07:36 11:46 POC Glucose 81 223 H (75-105) mg/dl Med Orders - Current: Current Medications Discontinued Medications Artificial Tears (Liquitears 1.4% Ophth Soln) 0 ml EYEBOTH BID [facility] Last Admin: 04/17/18 07:44 Dose: 1 drop Aspirin (Halfprin) 81 mg PO DAILY [facility] Last Admin: 04/17/18 07:38 Dose: 81 mg Enoxaparin Sodium (Lovenox) 30 mg SUBCUT DAILY@1600 [facility] Last Admin: 04/16/18 15:45 Dose: 30 mg Fluconazole (Diflucan) 150 mg PO NOW ONE Stop: 04/15/18 14:24 Last Admin: 04/15/18 14:56 Dose: 150 mg Furosemide (Lasix) 60 mg PO DAILY [facility] Last Admin: 04/17/18 07:40 Dose: 60 mg Gabapentin (Neurontin) 200 mg PO TID [facility] Last Admin: 04/17/18 07:40 Dose: 200 mg Sodium Chloride (Normal Saline) 1,000 mls @ 75 mls/hr IV ASDIRECTED [facility] Last Admin: 04/17/18 06:51 Dose: 75 mls/hr Insulin Aspart (Novolog) 30 unit SUBCUT WITHBREAKFAST [facility] Insulin Aspart (Novolog) 30 unit SUBCUT WITHLUNCH [facility] Insulin Aspart (Novolog) 35 unit SUBCUT WITHDINNER [facility] Last Admin: 04/15/18 17:54 Dose: Not Given Insulin Aspart (Novolog) 0 unit SUBCUT WITHMEALSANDBED [facility]; Protocol Last Admin: 04/17/18 12:05 Dose: 4 units Insulin Detemir (Levemir) 70 unit SUBCUT BID [facility] Last Admin: 04/17/18 07:45 Dose: 70 units Isosorbide Mononitrate (Imdur) 30 mg PO DAILY [facility] Last Admin: 04/17/18 07:39 Dose: 30 mg Levothyroxine Sodium (Synthroid) 150 mcg PO DAILY [facility] Last Admin: 04/17/18 07:39 Dose: 150 mcg Loratadine (Claritin) 10 mg PO DAILY [facility] Last Admin: 04/17/18 07:38 Dose: 10 mg Magnesium Oxide (Magnesium Oxide) 250 mg PO DAILY [facility] Last Admin: 04/17/18 07:38 Dose: 250 mg Metoprolol Tartrate (Lopressor) 25 mg PO Q12H [facility] Last Admin: 04/15/18 14:58 Dose: Not Given Metoprolol Tartrate (Lopressor) 25 mg PO BID [facility] Last Admin: 04/17/18 07:39 Dose: 25 mg Non-Formulary Medication (Aloe Vera/Sodium Chloride [[place] Saline Nasal Gel]) 1 applic SEAN TID [facility] Last Admin: 04/17/18 07:45 Dose: 1 applic Non-Formulary Medication (Dextran 70/Hypromellose [Artificial Tears]) 1 each OP BID [facility] Last Admin: 04/16/18 09:50 Dose: Not Given Ptom Lovastatin ([Lovastatin] 40 Mg) 80 mg PO BEDTIME [facility] Last Admin: 04/16/18 19:59 Dose: 80 mg Non-Formulary Medication (Magnesium [Magnesium]) 250 mg PO DAILY [facility] Last Admin: 04/16/18 09:50 Dose: Not Given Ptom Sertraline ([Zoloft] 100 Mg) 100 mg PO DAILY@1999 [facility] Last Admin: 04/16/18 19:59 Dose: 100 mg Oxymetazoline HCl (Afrin Original 0.05% Nasal [place]) 0 ml SEAN QID PRN PRN Reason: nose bleed Last Admin: 04/15/18 18:19 Dose: 2 spray Senna/Docusate Sodium (Senna Plus) 1 tab PO DAILY [facility] Last Admin: 04/17/18 07:38 Dose: 1 tab Sucralfate (Carafate) 1 gm PO BID [facility] Last Admin: 04/17/18 07:39 Dose: 1 gm Tramadol HCl (Ultram) 50 mg PO QID [facility] Last Admin: 04/17/18 11:40 Dose: 50 mg - Exam General: Reports: Oriented (oriented to person and place; disoriented to time), Other (alert to drowsy at times) HEENT: Reports: Mucous Membr. Moist/[place] Neck: Reports: Supple Lungs: Reports: Clear to Auscultation, Normal Respiratory Effort Cardiovascular: Reports: Regular Rate, Regular Rhythm GI/Abdominal Exam: Normal Bowel Sounds, Soft, Non-Tender Skin: Reports: Warm, Dry Neurological: Reports: No New Focal Deficit
== END 2018-04-17 13:30 | disposition home or self-care (01) ==
LOC: CC.ED 11:35 → CC.MS 13:26 → UNDOADMOB 14:04 → CC.MS 14:04
PROVIDERS: ADMIT Physician Assistant Medical; ATTEND Family Medicine
DX: R53.1 Weakness (principal); G45.9 Transient cerebral ischemic attack, unspecified; Z79.82 Long term (current) use of aspirin; Z79.899 Other long term (current) drug therapy
CPT/HCPCS: 36415; 51702; 70450; 71045; 80053; 81001; 82550; 82962; 84484; 85025; 85610; 85730; 86140; 93005; 96360; 96361; 96372; 99285; A9270-GY; G0378; J1650; J1815-GY; J7030